=== PATIENT | female | born 1940 | race Two or more races ===

== ENCOUNTER 2023-03-26 00:21 | Emergency (ER) | payer BC, OTHER ==
[~2023-03-26] VITALS: Ht 157.5 cm; Wt 72.6 kg
[2023-03-26] MEDS ORDERED: ONDANSETRON HCL/PF 4 MG/2 ML VIAL ONE (00:43)
[2023-03-26] MEDS ORDERED: MORPHINE SULFATE INJ 2 MG/ML DISP.SYRIN ONE (00:57)
[2023-03-26] MEDS ORDERED: ONDANSETRON HCL/PF 4 MG/2 ML VIAL IVP ONE (01:00)
[2023-03-26] MEDS ORDERED: MORPHINE SULFATE INJ 2 MG/ML DISP.SYRIN IV ONE (01:00)
[2023-03-26] MEDS ORDERED: IV NS 0.9% 1,000 ML BAG IV ONE (01:00)
[2023-03-26 01:14] LABS: BASOPHILS % (AUTO) 0.7 % (0.0-2.0); EOSINOPHILS % (AUTO) 0.3 % (0.0-6.0); HEMATOCRIT 37 % (33-45); LYMPHOCYTES # (AUTO) 0.9 K/uL (0.8-4.8); LYMPHOCYTES % (AUTO) 17.4 % (20.0-44.0); MEAN CORPUSCULAR HEMOGLOBIN 30 PG (26.0-33.0); MEAN CORPUSCULAR HGB CONC 33 g/dl (31.0-36.0); MEAN CORPUSCULAR VOLUME 93 fL (82-100); MONOCYTES # (AUTO) 0.4 K/uL (0.1-1.30); MONOCYTES % (AUTO) 7.4 % (2.0-12.0); NEUTROPHILS % (AUTO) 74.2 % (43.0-81.0); PLATELET COUNT (AUTO) 272 K/uL (150-450); RED BLOOD CELL COUNT(AUTO) 3.96 MIL/uL (4.0-5.2); RED CELL DISTRIBUTION WIDTH 14.3 % (11.5-15.0); WHITE BLOOD COUNT (AUTO) 5.4 K/uL (4.3-11.0)
[2023-03-26 01:31] LABS: ALBUMIN 4.1 g/dL (3.4-5.0); BILIRUBIN,DIRECT 0.2 mg/dL (0.0-0.2); BILIRUBIN,TOTAL 0.7 mg/dL (0.2-1.0); CALCIUM, SERUM 9.9 mg/dL (8.5-10.1); CREATININE 1.3 mg/dL (0.6-1.3); POTASSIUM 3.8 mmol/L (3.5-5.1); TOTAL PROTEIN, SERUM 7.7 g/dL (6.4-8.2)
[2023-03-26] MEDS ORDERED: ONDA4TAB5 PO (04:04)
[2023-03-26] MEDS ORDERED: HYDROCODONE/APAP 5/325MG TABLET ONE (04:08)
[2023-03-26] MEDS ORDERED: HYDROCODONE/APAP 5/325MG TABLET PO ONE (04:30)
[2023-03-26 05:00] VITALS: BP 129/63; TEMP 97.6; O2SAT 93
== END 2023-03-26 05:33 | disposition home or self-care (01) ==
LOC: ER 00:24
DX: R19.7 Diarrhea, unspecified (principal); R11.2 Nausea with vomiting, unspecified; T50.995A Adverse effect of other drugs, medicaments and biological substances, initial encounter; I10 Essential (primary) hypertension; Z60.2 Problems related to living alone; Z88.2 Allergy status to sulfonamides; Y92.89 Other specified places as the place of occurrence of the external cause
CPT/HCPCS: 99285; 74176; 96374; 71045; 96361; 96375; 85025; 80048; 80076; 36415; J2405; J7030; J2270